=== PATIENT | male | born 1950 | race Caucasian/White ===

== ENCOUNTER → 2023-06-23 | Emergency (ER) | payer OTHER ==
[~2023-06-23] VITALS: Ht 175.3 cm; Wt 81.6 kg
[~2023-06-23] MED LIST: NORVASC5 MG PO; ZOCOR20 MG PO
== END | disposition left against medical advice (07) ==
LOC: ER 17:07
DX: Z53.21 Procedure and treatment not carried out due to patient leaving prior to being seen by health care provider (principal)